=== PATIENT | male | born 1955 | race Caucasian/White ===

== ENCOUNTER 2016-09-05 17:47 | Emergency (ER) | payer SELFPAY ==
[~2016-09-05] VITALS: Ht 152.4 cm; Wt 89.0 kg
[~2016-09-05 17:47] MED LIST: LORA1TAB PO
[2016-09-05 17:51] VITALS: Ht 152.4 cm; Wt 89.0 kg
[2016-09-06] MEDS ORDERED: CHLO25CA9 PO (04:08)
== END 2016-09-05 20:53 | disposition left against medical advice (07) ==
LOC: E/R 17:47
DX: Z53.21 Procedure and treatment not carried out due to patient leaving prior to being seen by health care provider (principal)

== ENCOUNTER 2016-09-05 23:52 | Emergency (ER) | payer SELFPAY ==
[~2016-09-05] VITALS: Ht 154.9 cm; Wt 93.0 kg
[2016-09-06 00:17] VITALS: Ht 154.9 cm; Wt 93.0 kg
[2016-09-06] MEDS ORDERED: LORAZEPAM 1 MG TAB PO ONE (04:00)
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
[2016-09-06] MEDS ORDERED: CHLO25CA9 PO (04:08)
[2016-09-06 05:46] VITALS: BP 167/86; PULSE 90; RESP 16; TEMP 98.9
== END 2016-09-06 05:45 | disposition home or self-care (01) ==
LOC: E/R 23:52
DX: F10.120 Alcohol abuse with intoxication, uncomplicated (principal); I10 Essential (primary) hypertension; E11.9 Type 2 diabetes mellitus without complications; F17.210 Nicotine dependence, cigarettes, uncomplicated
CPT/HCPCS: 93005

== ENCOUNTER → 2017-05-13 | Emergency (ER) | payer OTHER ==
[~2017-05-13] VITALS: Ht 160 cm; Wt 109.0 kg
[~2017-05-13] MED LIST changes: +CHLO25CA9 PO; +MAGNESIUM SULFATE 2 GM, MULTIVITAMINS 10 ML, THIAMINE 100 MG, FOLIC ACID 1 MG in SOD CH... IV STA
[2017-05-13 18:19] VITALS: Ht 160 cm; Wt 109.0 kg
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
[2017-05-13 19:43] LABS: BASOPHIL # 0.1 10^3/ul (0.0-0.1); BASOPHILS % 0.7 % (0.0-2.0); EOSINOPHILS # 0.2 10^3/ul (0.0-0.5); HEMATOCRIT 35.7 % (42.0-52.0); HEMOGLOBIN 11.3 g/dl (14.0-18.0); LYMPHOCYTES # 1.3 10^3/ul (0.8-2.9); LYMPHOCYTES % 17.7 % (15.0-51.0); MEAN CORPUSCULAR HEMOGLOBIN 24.7 pg (29.0-33.0); MEAN CORPUSCULAR HGB CONC 31.7 g/dl (32.0-37.0); MEAN CORPUSCULAR VOLUME 78.1 fl (82.0-101.0); MEAN PLATELET VOLUME 9.9 fl (7.4-10.4); MONOCYTE # 0.7 10^3/ul (0.3-0.9); MONOCYTES % 9.3 % (0.0-11.0); NEUTROPHIL # 5.1 10^3/ul (1.6-7.5); PLATELET COUNT 322 10^3/UL (140-415); RED BLOOD COUNT 4.57 10^6/ul (4.70-6.10); RED CELL DISTRIBUTION WIDTH 18.2 % (11.5-14.5); WHITE BLOOD COUNT 7.4 10^3/ul (4.8-10.8)
[2017-05-13 20:07] LABS: ALBUMIN 3.7 g/dl (3.3-4.9); BILIRUBIN,INDIRECT 0.1 mg/dl (0-1.1); BILIRUBIN,TOTAL 0.1 mg/dl (0.2-1.3); CALCIUM 9.1 mg/dl (8.4-10.2); CREATININE 0.7 mg/dl (0.61-1.24); POTASSIUM 3.5 mmol/L (3.5-5.1); TOTAL PROTEIN 7.4 g/dl (6.1-8.1)
[2017-05-14 04:12] VITALS: BP 136/87; PULSE 78; RESP 18; TEMP 98.2
== END | disposition home or self-care (01) ==
LOC: E/R 18:07
DX: F10.920 Alcohol use, unspecified with intoxication, uncomplicated (principal); I10 Essential (primary) hypertension; E11.9 Type 2 diabetes mellitus without complications; F17.210 Nicotine dependence, cigarettes, uncomplicated
CPT/HCPCS: 80053; 80306; 85025; J3411; J3475; J7030; Z7502; Z7610; 99283